=== PATIENT | female | born 1985 | race Asian ===

== ENCOUNTER 2017-03-25 09:37 | Emergency (ER) | payer OTHER ==
[~2017-03-25] VITALS: Ht 154.9 cm; Wt 65.8 kg
[2017-03-25 09:43] VITALS: Ht 154.9 cm; Wt 65.8 kg
[2017-03-25 11:11] LABS: CALCIUM 9.4 mg/dL (8.5-10.1); CARBON DIOXIDE 25.1 mmol/L (21-32); CHLORIDE SERUM 103 mmol/L (98-107); CREATININE SERUM 0.8 mg/dL (0.6-1.0); GFR1 > 60 mL/min; GLUCOSE SERUM 142 mg/dL (74-106); POTASSIUM SERUM 3.2 mmol/L (3.5-5.1); SODIUM SERUM 140 mmol/L (136-145)
[2017-03-25 12:27] VITALS: BP 172/124
== END 2017-03-25 12:27 | disposition home or self-care (01) ==
LOC: ED 09:37
PROVIDERS: Emergency Medicine
DX: S09.90XA Unspecified injury of head, initial encounter (principal); I16.0 Hypertensive urgency; V43.52XA Car driver injured in collision with other type car in traffic accident, initial encounter; Y93.89 Activity, other specified; Y99.8 Other external cause status; Y92.89 Other specified places as the place of occurrence of the external cause
CPT/HCPCS: J3490; J7030